=== PATIENT | female | born 1980 | race African-American/Black ===

== ENCOUNTER → 2018-09-21 | Emergency (ER) | payer MEDICAID, OTHER ==
[~2018-09-21] VITALS: Ht 175.3 cm; Wt 80.7 kg
[~2018-09-21] MED LIST: BACLOFEN 10 MG TAB PO ONE; HYDROcodone-ACET 10/325MG TAB PO ONE; cefTRIAXone SOD 1,000 MG VL IM ONE; cefTRIAXone SOD 1,000 MG VL ONE
[2018-09-21 20:12] VITALS: BP 108/65
[2018-09-21 22:00] LABS: Urine Bacteria NONE SEEN /hpf (None Seen); Urine Blood 2+ /uL (Negative); Urine Mucus FEW (None Seen); Urine Specific Gravity 1.035 (1.001-1.035); Urine WBC 1 /hpf (0 - 5)
== END | disposition home or self-care (01) ==
LOC: EDBD 19:56 → ER 20:08
DX: S33.5XXA Sprain of ligaments of lumbar spine, initial encounter (principal); N39.0 Urinary tract infection, site not specified; M19.90 Unspecified osteoarthritis, unspecified site; X50.0XXA Overexertion from strenuous movement or load, initial encounter; Y93.89 Activity, other specified; Y92.89 Other specified places as the place of occurrence of the external cause; Y99.8 Other external cause status
CPT/HCPCS: 72100; 81001; 81025; 96372; 99284; J0696